=== PATIENT | male | born 1975 | race Caucasian/White ===

== ENCOUNTER 2016-10-13 20:26 | Emergency (ER) | payer MEDICAID ==
--- NOTE | 2016-10-13 20:48 | EDM.PDOC ---
ED HPI GENERAL MEDICAL PROBLEM - General Chief Complaint: General Stated Complaint: fever Time Seen by Provider: 10/13/16 20:40 Source of Information: Reports: Patient History Limitations: Reports: No limitations - History of Present Illness INITIAL COMMENTS - FREE TEXT/NARRATIVE: This is a 41yo M here for a sore throat, fever for the past 2 days as high as 104. Patient does have body aches all over. Patient feels nauseated, decreased appetite but able to drink and eat a little. Onset: sudden Duration: Day(s):, Getting worse Location: Reports: generalized Quality: Reports: Ache Severity: severe Improves with: Reports: None Worsens with: Reports: None Associated Symptoms: Reports: fever/chills, malaise, nausea/vomiting Treatments [employer]GER: Reports: NSAIDS Generalized Pain Score (Numeric/FACES): 5 - Related Data Allergies Allergy/AdvReac Type Severity Reaction Status Date / Time bee venom protein (honey bee) Allergy Edema Verified 10/13/16 21:04 Home Meds: Home Meds NK [No Known Home Meds] 06/06/16 [History] Past Medical History HEENT History: Reports: Impaired vision Musculoskeletal History: Reports: Fracture Oncologic (Cancer) History: Reports: Other (see below) Other Oncologic History: Testicular - Infectious Disease History Infectious Disease History: Reports: Chicken pox - Past Surgical History Musculoskeletal Surgical History: Reports: Joint replacement Social & Family History - Family History Family Medical History: Noncontributory - Tobacco Use Smoking Status *Q: Current Every Day Smoker Years of Tobacco use: 20 Packs/Tins Daily: 0.5 Used Tobacco, but Quit: No Second Hand Smoke Exposure: No - Caffeine Use Caffeine Use: Reports: Coffee, Soda - Recreational Drug Use Recreational Drug Use: No ED ROS GENERAL - Review of Systems Review Of Systems: ROS reveals no pertinent complaints other than HPI. ED EXAM, GENERAL - Physical Exam Exam: See Below Exam Limited By: No limitations General Appearance: alert, WD/WN, moderate distress Eye Exam: bilateral eye: EOMI, PERRL Ears: normal external exam Ear Exam: bilateral ear: canal normal, TM normal Nose: normal inspection Throat/Mouth: Normal inspection, Normal lips, Normal teeth, Normal gums, Other ( erythema of the throat) Head: atraumatic, normocephalic Neck: normal inspection, supple, non-tender Respiratory/Chest: no respiratory distress, lungs clear, rhonchi Cardiovascular: normal peripheral pulses, regular rate, rhythm GI/Abdominal: normal bowel sounds Neurological: alert, oriented Psychiatric: normal affect, normal mood Skin Exam: Warm, Dry, Intact Course - Orders/Labs/Meds Orders: Active Orders 24 hr Category Date Time Status CULTURE STREP A CONFIRMATION [RM] Stat Lab 10/13/16 20:44 Results STREP SCRN A RAPID W CULT CONF [RM] Stat Lab 10/13/16 20:44 Results Meds: Medications Discontinued Medications Generic Name Dose Route Start Last Admin Trade Name Nydia PRN Reason Stop Dose Admin Oseltamivir Phosphate Confirm 10/13/16 21:23 Tamiflu Administered 10/13/16 21:24 Dose 75 mg .ROUTE .STK-MED ONE Departure - Departure Time of Disposition: 21:30 Disposition: Home, Self-Care 01 Condition: good Clinical Impression: Influenza A Instructions: Influenza, Adult, [id number] Referrals: PCP,None [Primary Care Provider] - Forms: ED Department Discharge Additional Instructions: paster supervisor prescribed Tamiflu at regular pharmacy tomorrow and take as instructed by Dr. Denny. May continue taking ibuprofen and tylenol for pain as needed as well. Drink plenty of fluids and get plenty of rest. Follow up in clinic if needed. Call with any questions. - My Orders Last 24 Hours: My Active Orders 10/13/16 20:44 CULTURE STREP A CONFIRMATION [RM] Stat STREP SCRN A RAPID W CULT CONF [RM] Stat - Assessment/Plan Last 24 Hours: My Active Orders 10/13/16 20:44 CULTURE STREP A CONFIRMATION [RM] Stat STREP SCRN A RAPID W CULT CONF [RM] Stat
[2016-10-13] MEDS ORDERED: Oseltamivir 75 MG Cap ONE (21:23)
[2016-10-13 23:53] VITALS: BP 144/89
[2016-10-13] MEDS ORDERED: Oseltamivir 75 MG Cap PO ONE (23:55)
== END 2016-10-13 21:30 | disposition home or self-care (01) ==
LOC: LB.ED 20:26
DX: J10.1 Influenza due to other identified influenza virus with other respiratory manifestations (principal); F17.210 Nicotine dependence, cigarettes, uncomplicated
CPT/HCPCS: 87081; 87430; 87804; 99283; A9270

== ENCOUNTER 2019-06-15 16:35 | Emergency (ER) | payer MEDICAID ==
[2019-06-15 16:58] VITALS: BP 140/88; PULSE 69
--- NOTE | 2019-06-15 17:13 | EDM.PDOC ---
ED HPI GENERAL MEDICAL PROBLEM - General Chief Complaint: General Stated Complaint: irregular rhythm Time Seen by Provider: 06/15/19 17:05 Source of Information: Reports: Patient, Family, RN History Limitations: Reports: No Limitations - History of Present Illness INITIAL COMMENTS - FREE TEXT/NARRATIVE: 44 yr old male presents with feeling like abnormal heart rate and has noted this on/off since October 2018. He did have an ablation about 4 yr prior. States he does chew tobacco and does drink about 2 cups of coffee daily and does take Ibuprofen 2-3 tablets 1-2 times daily. He does have some chronic back pain. States he did have some muscle relaxer, but never took them. He has seen the chriropractor in the past and hasn't been there since earlier this spring. - Related Data Allergies Allergy/AdvReac Type Severity Reaction Status Date / Time bee venom protein (honey bee) Allergy Edema Verified 06/15/19 16:43 Home Meds: Home Meds Ibuprofen [Advil] 600 mg PO TID 06/15/19 [History] Past Medical History HEENT History: Reports: Impaired Vision Musculoskeletal History: Reports: Fracture Oncologic (Cancer) History: Reports: Other (See Below) Other Oncologic History: Testicular - Infectious Disease History Infectious Disease History: Reports: Chicken Pox - Past Surgical History Musculoskeletal Surgical History: Reports: Joint Replacement Social & Family History - Family History Family Medical History: Noncontributory - Caffeine Use Caffeine Use: Reports: Coffee, Soda ED ROS GENERAL - Review of Systems Review Of Systems: See Below Constitutional: Reports: No Symptoms HEENT: Reports: No Symptoms Respiratory: Reports: No Symptoms Cardiovascular: Reports: Other (States he noted some chest pain, briefly this am with bending over, but no syncope.) Endocrine: Reports: Other (always tired) Musculoskeletal: Reports: Back Pain ED EXAM, GENERAL - Physical Exam Exam: See Below Exam Limited By: No Limitations General Appearance: Alert, No Apparent Distress Head: Atraumatic, Normocephalic Neck: Supple, Non-Tender Respiratory/Chest: No Respiratory Distress, Lungs Clear, Normal Breath Sounds, Chest Non-Tender Cardiovascular: Normal Peripheral Pulses, No Edema, Other (PAc's per EKG) GI/Abdominal: Normal Bowel Sounds, Soft Extremities: Normal Inspection, Normal Range of Motion, No Pedal Edema, Normal Capillary Refill Neurological: Alert, Oriented, Normal Cognition Psychiatric: Normal Affect, Normal Mood Skin Exam: Warm, Dry, Normal Color Course - Vital Signs Last Recorded V/S: Last Vital Signs Temp 97.2 F 06/15/19 16:54 Pulse 69 06/15/19 16:54 Resp 18 06/15/19 16:54 BP 140/88 06/15/19 16:54 Pulse Ox 100 06/15/19 16:54 - Orders/Labs/Meds Orders: Active Orders 24 hr Category Date Time Status EKG Documentation Completion [RC] ASDIRECTED Care 06/15/19 16:42 Active Labs: Laboratory Tests 06/15/19 06/15/19 Range/Units 16:45 16:45 WBC 7.7 (4.0-11.0) K/uL RBC 4.90 (4.50-6.50) M/uL Hgb 15.2 (13.0-18.0) g/dL Hct 42.9 (40.0-54.0) % MCV 88 (76-96) fL MCH 31.0 (27.0-32.0) pg MCHC 35.4 H (31.0-35.0) g/dL RDW 13.9 (11.0-16.0) % Plt Count 231 (150-400) K/uL MPV 10.7 H (6.0-10.0) fL Neut % (Auto) 61.1 (45.0-70.0) % Lymph % (Auto) 26.6 (20.0-40.0) % [place] % (Auto) 7.8 (3.0-10.0) % Eos % (Auto) 3.9 (1.0-5.0) % Baso % (Auto) 0.6 H (0.0-0.5) % Neut # (Auto) 4.72 (2.00-7.50) K/uL Lymph # (Auto) 2.06 (1.50-4.00) K/uL [place] # (Auto) 0.60 (0.20-0.80) K/uL Eos # (Auto) 0.30 (0.04-0.40) K/uL Baso # (Auto) 0.05 (0.02-0.10) K/uL Sodium 141 (136-145) mmol/L Potassium 4.0 (3.5-5.1) mmol/L Chloride 104 (98-107) mmol/L Carbon Dioxide 29.2 (21.0-32.0) mmol/L Anion Gap 11.8 (5.0-15.0) mmol/L BUN 21 (8-26) mg/dL Creatinine 1.00 (0.70-1.30) mg/dL Est Cr Clr Drug Dosing 104.54 mL/min Estimated GFR (MDRD) > 60 (>60) MLS/MIN BUN/Creatinine Ratio 21.0 (6-25) Glucose 109 H (74-100) mg/dL Calcium 8.5 (8.5-10.1) mg/dL Total Bilirubin 0.5 D (0.0-1.0) mg/dL AST 38 H (15-37) U/L ALT 64 (12-78) U/L Alkaline Phosphatase 71 (46-116) U/L Troponin I < 0.017 (0.000-0.060) ng/mL Total Protein 7.6 (6.4-8.2) g/dL Albumin 3.8 (3.4-5.0) g/dL Globulin 3.8 (2.2-4.2) g/dL Albumin/Globulin Ratio 1.0 (0.8-2.0) - Re-Assessments/Exams Free Text/Narrative Re-Assessment/Exam: 06/15/19 17:36 Reviewed EKG and labs with pt and mother. Pt is stable and no chest pain and no shortness of breath. Labs completed, no elevation of troponin. Sinus rhythm with PAC's and RBB. Order for holter monitor. Pt will consider PT referral or chiropractor for his back pain. Will refer pt to cardiology. Departure - Departure Time of Disposition: 17:47 Disposition: Home, Self-Care 01 Condition: Good Clinical Impression: PAC (premature atrial contraction) - Discharge Information *PRESCRIPTION DRUG MONITORING PROGRAM REVIEWED*: Not Applicable *COPY OF PRESCRIPTION DRUG MONITORING REPORT IN PATIENT MARY: Not Applicable Instructions: Ambulatory Cardiac Monitoring Referrals: PCP,None [Primary Care Provider] - Forms: ED Department Discharge Additional Instructions: Discharge home. Wear Holter monitor as discussed, referral set up for [facility]. Follow up with [facility] as discussed. Consider PT. Limit coffee and tobacco. Medicate with Tylenol and Ibuprofen-alternate for back pain. Try to eat something with Ibuprofen, to prevent stomach irritation. Follow up in the clinic after cardiology appointment. - Assessment/Plan Plan: Cardiac holter monitor tonight and referral to cardiology for consult. Recommend to limit caffeine and limit or cessation of tobacco. RTC for follow- up after cardiology consult. Recommend tylenol or Ibuprofen for relief of back pain. Discussed PT referral and pt declines at this time. Return to ER if increase in symptoms of chest pain or shortness of breath.
== END 2019-06-15 17:50 | disposition home or self-care (01) ==
LOC: LB.ED 16:35
DX: I49.1 Atrial premature depolarization (principal); Z91.030 Bee allergy status
CPT/HCPCS: 0296T; 0297T; 36415; 80053; 84484; 85025; 93005; 99284